=== PATIENT | male | born 1950 | race Asian ===

== ENCOUNTER 2019-01-26 16:47 | Emergency (ER) | payer MEDICARE, OTHER | END 2019-01-26 21:30 | disposition home or self-care (01) | LOC: FTE 16:47 | DX: K91.840 Postprocedural hemorrhage of a digestive system organ or structure following a digestive system procedure (principal) | CPT/HCPCS: 99282 ==

== ENCOUNTER 2019-03-22 05:51 | Day surgery (SDC) | payer MEDICARE, OTHER ==
[2019-03-22] MEDS ORDERED: CEFAZOLIN 2 GM/50 ML (PMX) 50 ML IVPB (06:00)
[2019-03-22] MEDS: SOD CHLORIDE 0.9% 1,000 ML IV ×2 (06:43→08:54)
[2019-03-22] MEDS ORDERED: BUPIVACAINE 0.25% (MPF) 30 ML INJ (06:53)
[2019-03-22] MEDS ORDERED: IPRATROPIUM (NEB) 0.5 MG/2.5 ML AMP HHN (07:30)
[2019-03-22] MEDS ORDERED: FENTAnyl 50 MCG/ML VIAL IV ×3 (07:30)
[2019-03-22] MEDS ORDERED: EPHEDrine SULFATE 50 MG/5 ML SYG IV (07:30)
[2019-03-22] MEDS ORDERED: ALBUTEROL 0.083% (NEB) 2.5 MG/3 ML AMP HHN (07:30)
[2019-03-22] MEDS ORDERED: ONDANSETRON 4 MG INJ IV (07:30)
[2019-03-22] MEDS ORDERED: DIPHENHYDRAMINE 50 MG INJ IV (07:30)
[2019-03-22] MEDS ORDERED: MIDAZOLAM 1 MG/ML 2 ML INJ IV (07:30)
[2019-03-22] MEDS ORDERED: OXYCODONE/ACETAMINOPHEN (5/325) TAB PO ×2 (07:30)
[2019-03-22] MEDS ORDERED: MEPERIDINE 25 MG INJ IV (07:30)
[2019-03-22] MEDS ORDERED: hydrALAzine 20 MG INJ IV (07:30)
[2019-03-22] MEDS ORDERED: HYDROmorphONE 1 MG/5 ML IV SYRINGE IV ×3 (07:30)
[2019-03-22] MEDS ORDERED: LABETALOL HCL 20MG INJ IV (07:30)
[2019-03-22] MEDS ORDERED: TRIMETHOBENZAMIDE 100 MG/ML VIAL IM (07:30)
[2019-03-22] MEDS ORDERED: LIDOCAINE 100 MG SYRINGE (07:55)
[2019-03-22] MEDS ORDERED: PROPOFOL 20 ML (07:55)
[2019-03-22] MEDS ORDERED: FENTAnyl 50 MCG/ML VIAL (07:56)
[2019-03-22] MEDS: BUPIVACAINE 0.5% (SDV) 30 ML INJ (08:06)
[2019-03-22] MEDS: LIDOCAINE 2% (MDV) 20 ML INJ ×2 (08:06→08:47)
[2019-03-22] MEDS ORDERED: HYDROCODONE/APAP (5/325) TAB PO (09:00)
== END 2019-03-22 10:00 | disposition home or self-care (01) ==
LOC: SDS 05:51
DX: L72.0 Epidermal cyst (principal); E11.9 Type 2 diabetes mellitus without complications; I10 Essential (primary) hypertension; Z79.82 Long term (current) use of aspirin; Z79.84 Long term (current) use of oral hypoglycemic drugs
CPT/HCPCS: 14021; 82962; 88307